=== PATIENT | male | born 1975 | race Caucasian/White ===

== ENCOUNTER 2017-01-16 17:57 | Emergency (ER) | payer BC, OTHER ==
[2017-01-16] MEDS ORDERED: HYDROCODONE/APAP 5/325 TAB PO ONE (18:32)
[2017-01-16] MEDS ORDERED: IBUPROFEN 600 MG TAB PO ONE (18:32)
[2017-01-16] MEDS ORDERED: HYDROCODONE/APAP 5/325 TAB ONE (18:40)
[2017-01-16] MEDS ORDERED: predniSONE 20 MG TAB PO ONE (19:08)
--- NOTE | 2017-01-16 19:11 | EDPHY ---
H & P Stated Complaint: ankle pain since 01/13 getting worse swollen, poss injury? also has gout hx Time Seen by Provider: 01/16/17 18:05 HPI/ROS: Chief complaint: Left ankle injury and pain History of present illness: This is a 41-year-old male who presents to the emergency department for a left ankle injury and pain. Patient reports approximately 4 days ago while on an elliptical machine he believes he twisted his ankle. Since then he has had increasing pain. He states the whole ankle now hurts. It is making it difficult to ambulate. Patient denies other associated signs or symptoms: No other trauma, no paresthesias, no abnormal coolness to the foot, no open wounds. Patient does have a history of gout, this feels similar. - Personal History Current Tetanus/Diphtheria Vaccine: Unsure Current Tetanus Diphtheria and Acellular Pertussis (TDAP): Unsure Tetanus Vaccine Date: 2010 - Medical/Surgical History Hx Asthma: No Hx Chronic Respiratory Disease: No Hx Diabetes: No Hx Cardiac Disease: No Hx Renal Disease: No Hx Cirrhosis: No Hx Alcoholism: No Hx HIV/AIDS: No Hx Splenectomy or Spleen Trauma: No Other PMH: bowel obstructions. gout - Social History Smoking Status: Never smoked - Physical Exam Exam: General: Alert, nontoxic Skin: Mild edema to the left ankle. No open wounds or other findings. Musculoskeletal: The ankle is diffusely tender. There is discomfort with active and passive range of motion. The lower leg and foot are nontender. He can move the digits in the foot. Vascular: DP and PT pulses 2+. Capillary refill brisk in the left foot. Neurologic: Sensation intact throughout the left foot and ankle. Constitutional: Initial Vital Signs Temperature (C) 36.3 C 01/16/17 17:59 Heart Rate 104 H 01/16/17 17:59 Respiratory Rate 16 01/16/17 17:59 Blood Pressure 143/86 H 01/16/17 17:59 O2 Sat (%) 92 01/16/17 17:59 O2 Delivery Mode Room Air Allergies/Adverse Reactions: No Known Allergies Allergy (Unverified 09/14/12 10:02) Home Medications: Medication Instructions Recorded predniSONE 40 mg PO DAILY 3 Days 01/16/17 Medical Decision Making - Diagnostics Imaging Results: Imaging Impressions Ankle X-Ray 01/16/17 18:31 Impression: Negative for fracture. If symptoms persist, MRI could be considered for further evaluation. Imaging: I viewed and interpreted images myself ED Course/Re-evaluation: Patient is seen under the supervision of my secondary supervising physician Dr. Christopher Clemens. Patient presents to the emergency department for a left ankle injury and pain. Patient is nontoxic. His lower extremity is neurovascularly intact. X-ray is negative. I do believe he is likely suffering from a gout attack. He has had multiple gout attacks in his great toes and ankles, this is similar. My suspicion for other pathology such as septic joint is low. We have discussed a joint aspiration but he has declined. Patient states he responds well to prednisone for gout attacks. He is started on prednisone. Pain management is further discussed. He is discharged home. Home care is discussed. Strict return precautions are given. Patient voiced understanding and agreement with plan. Differential Diagnosis: Included but not limited to traumatic injury such as sprain or strain, or fracture, gout, pseudogout, unlikely septic joint - Data Points Medications Given: Discontinued Medications Hydrocodone Bitart/Acetaminophen ([place] 5/325) 1 tab PO EDNOW ONE Stop: 01/16/17 18:33 Last Admin: 01/16/17 18:36 Dose: 1 tab Hydrocodone Bitart/Acetaminophen ([place] 5/325mg Prepack#6) 1 btl TAKEHOME EDNOW ONE Stop: 01/16/17 19:13 Last Admin: 01/16/17 19:32 Dose: 1 btl Ibuprofen (Motrin) 600 mg PO EDNOW ONE Stop: 01/16/17 18:33 Last Admin: 01/16/17 18:36 Dose: 600 mg Prednisone (Prednisone) 60 mg PO EDNOW ONE Stop: 01/16/17 19:09 Last Admin: 01/16/17 19:15 Dose: 60 mg Departure - Departure Disposition: Home, Routine, Self-Care Clinical Impression: Gout attack Qualifiers: Gout site: ankle Gout etiology: unspecified cause Laterality: left Qualified Code(s): M10.9 - Gout, unspecified Condition: Good Instructions: Hydrocodone/Acetaminophen (By mouth), Gout (ED) Additional Instructions: Follow-up with your primary care doctor for recheck In regards to pain control see the following: Use ibuprofen [600] mg [3] times a day for the next 2-3 days for pain In addition You have been prescribed [[place]] for pain. [[place]] contains Tylenol, do not take extra Tylenol/acetaminophen/Apap with it. It is sedating. If symptoms worsen or new symptoms develop return to the emergency room for recheck Referrals: UNKNOWN,DOCTOR [Other] - As per Instructions Alden Sweet [Doctor of Osteopathy] - As per Instructions Prescriptions: predniSONE 40 mg PO DAILY 3 Days
[2017-01-16] MEDS ORDERED: HYDROCOD/APAP 5/325 PREPACK#6 BTL TAKEHOME ONE (19:12)
[2017-01-16 19:34] VITALS: BP 113/74; PULSE 92; RESP 18; TEMP 97.9; O2SAT 94
== END 2017-01-16 19:33 | disposition home or self-care (01) ==
DX: M10.9 Gout, unspecified (principal); X58.XXXA Exposure to other specified factors, initial encounter